=== PATIENT | female | born 1975 | race Two or more races ===

== ENCOUNTER 2020-07-14 23:11 | Emergency (ER) | payer MEDICAID ==
[~2020-07-14] VITALS: Ht 160 cm; Wt 136.4 kg
[2020-07-14] MEDS ORDERED: ALBU8HFA IH (23:17)
[2020-07-14] MEDS ORDERED: METF-960 PO (23:17)
[2020-07-14] MEDS ORDERED: GABA-1216 PO (23:17)
[2020-07-15] MEDS ORDERED: HYDROCODONE/ACETAMINOPHEN 5-325 MG TABLET PO ONE (00:30)
[2020-07-15 03:10] VITALS: BP 127/70
== END 2020-07-15 05:12 | disposition home or self-care (01) ==
LOC: EMS 23:13
DX: S93.401A Sprain of unspecified ligament of right ankle, initial encounter (principal); S50.01XA Contusion of right elbow, initial encounter; J45.909 Unspecified asthma, uncomplicated; E11.9 Type 2 diabetes mellitus without complications; Z88.6 Allergy status to analgesic agent; Z79.84 Long term (current) use of oral hypoglycemic drugs; W01.0XXA Fall on same level from slipping, tripping and stumbling without subsequent striking against object, initial encounter; Y93.89 Activity, other specified; Y92.89 Other specified places as the place of occurrence of the external cause; Y99.8 Other external cause status
CPT/HCPCS: 29540; 99284; 73080-TC; 73610-TC; 73630-TC; Z7502; Z7610